=== PATIENT | female | born 1950 | race Caucasian/White ===

== ENCOUNTER 2020-03-12 08:50 | Emergency (ER) | payer MEDICARE ==
[2020-03-12] MEDS ORDERED: cloNIDine 0.1 MG TABLET PO STA (09:16)
--- NOTE | 2020-03-12 09:17 | ED Physician Documentation ---
History of Present Illness - Stated complaint Stated Complaint: SHAKEY - Chief complaint Chief Complaint: Cardiac - History obtained from History obtained from: Patient - Additonal information Additional information: 69-year-old woman with history of coronary artery disease, [address] from about 3 years ago. She woke this morning at 4 AM feeling odd, not quite right. Subsequently took her blood pressure several times and it was in the range of 200/100. She drove to the clinic, but the clinic was closed and subsequently she got quite shaky feeling like she was anxious. Activity improv es her symptoms. No chest pain or trouble breathing. No pedal edema. No urinary complaints. Review of Systems Constitutional: reports: Reviewed and negative Nose: denies: Rhinorrhea / runny nose Cardiac: denies: Chest pain / pressure, Palpitations, Pedal edema, Calf pain Respiratory: denies: Dyspnea, Cough PD PAST MEDICAL HISTORY - Allergies Allergies/Adverse Reactions: Allergies Allergy/AdvReac Type Severity Reaction Status Date / Time No Known Drug Allergies Allergy Verified 03/12/20 09:24 PD ED PE NORMAL - Vitals Vital signs reviewed: Yes - General General: Alert and oriented X 3, No acute distress - HEENT HEENT: PERRL, EOMI - Neck Neck: Supple, no meningeal sign, No bony TTP - Cardiac Cardiac: RRR, No murmur - Respiratory Respiratory: No respiratory distress, Clear bilaterally - Abdomen Abdomen: Normal bowel sounds, Soft, Non tender - Back Back: No CVA TTP, No spinal TTP - Derm Derm: Normal color, Warm and dry - Extremities Extremities: No edema, No calf tenderness / cord - Neuro Neuro: Alert and oriented X 3, bilingual legal assistant 2-12 intact, No motor deficit, No sensory deficit, Normal speech Results - Vitals Vitals: Vital Signs - 24 hr 03/12/20 03/12/20 09:01 09:33 Temperature 36.6 C Heart Rate 75 71 Respiratory 18 14 Rate Blood Pressure 209/95 H 171/73 H O2 Saturation 99 100 Oxygen O2 Source Room air - EKG (time done) 0908 Rate: Rate (enter#) Rhythm: NSR [place]: Normal Intervals: Normal [place] QRS: Normal Ischemia: Non specific changes. No: ST elevation c/w ischemia, ST depression Computer interpretation: Agree with computer - Labs Labs: Laboratory Tests 03/12/20 03/12/20 03/12/20 09:10 09:10 09:10 WBC 7.4 RBC 4.85 Hgb 15.6 Hct 44.8 MCV 92.4 MCH 32.2 H MCHC 34.8 RDW 12.4 Plt Count 320 MPV 10.3 Neut # (Auto) 5.3 Lymph # (Auto) 1.6 [place] # (Auto) 0.4 Eos # (Auto) 0.0 Baso # (Auto) 0.0 Absolute Nucleated RBC 0.00 Nucleated RBC % 0.0 Sodium 136 Potassium 3.6 Chloride 98 L Carbon Dioxide 24 Anion Gap 14.0 H BUN 26 H Creatinine 1.0 Estimated GFR (MDRD) 55 L Glucose 154 H Calcium 10.2 Total Bilirubin 0.8 AST 23 ALT 24 Alkaline Phosphatase 56 Total Protein 8.9 H Albumin 5.0 Globulin 3.9 Albumin/Globulin Ratio 1.3 Lipase 42 TSH 3.81 PD MEDICAL DECISION MAKING - ED course ED course: 89-year-old woman elevated blood pressure and anxiety, no evidence of endorgan damage. Feeling much better after 0.2 mg of clonidine p.o. Departure - Departure Disposition: 01 Home, Self Care Clinical Impression: Anxiety Hypertension Qualifiers: Hypertension type: essential hypertension Qualified Code(s): I10 - Essential (primary) hypertension Condition: Good Record reviewed to determine appropriate education?: Yes Instructions: ED HTN Established Comments: Continue current medications, do not take your blood pressure again today, take it tomorrow when you are feeling well. Follow-up with your doctor within the week. Return as needed.
[2020-03-12 09:27] LABS: BASOPHILS % (AUTO) 0.5 %; EOSINOPHILS % (AUTO) 0.5 %; HGB - HEMOGLOBIN 15.6 g/dL (12.0-16.0); LYMPHOCYTES # (AUTO) 1.6 10^3/uL (1.5-3.5); LYMPHOCYTES % (AUTO) 21.9 %; MEAN CORPUSCULAR HEMOGLOBIN 32.2 pg (27.0-31.0); MEAN CORPUSCULAR HGB CONC 34.8 g/dL (32.0-36.0); MEAN CORPUSCULAR VOLUME 92.4 fL (81.0-99.0); MEAN PLATELET VOLUME 10.3 fL (7.9-10.8); MONOCYTES # (AUTO) 0.4 10^3/uL (0.0-1.0); MONOCYTES % (AUTO) 5.8 %; NEUTROPHILS # (AUTO) 5.3 10^3/uL (1.5-6.6); PLT - PLATELET COUNT 320 10^3/uL (130-450); RED BLOOD COUNT 4.85 10^6/uL (4.20-5.40); RED CELL DISTRIBUTION WIDTH 12.4 % (12.0-15.0); WHITE BLOOD COUNT 7.4 x10^3/uL (4.8-10.8)
[2020-03-12 09:38] LABS: ALBUMIN/GLOBULIN RATIO 1.3 (1.0-2.2); BILIRUBIN,TOTAL 0.8 mg/dL (0.2-1.0); CALCIUM 10.2 mg/dL (8.5-10.3); TOTAL PROTEIN 8.9 g/dL (6.7-8.2)
[2020-03-12 10:20] VITALS: BP 107/96
== END 2020-03-12 10:30 | disposition home or self-care (01) ==
LOC: ED 08:50
DX: F41.9 Anxiety disorder, unspecified (principal); I25.10 Atherosclerotic heart disease of native coronary artery without angina pectoris; I10 Essential (primary) hypertension; Z95.5 Presence of coronary angioplasty implant and graft
CPT/HCPCS: 36415; 80053; 83690; 84443; 85025; 93005; 99284; A9270

== ENCOUNTER 2020-03-12 13:39 | Outpatient (CLI) | payer MEDICARE | END 2020-03-12 13:40 | disposition critical access hospital (66) | LOC: EMS 13:39 | PROVIDERS: ATTEND Surgery | DX: R25.9 Unspecified abnormal involuntary movements (principal); R11.0 Nausea; R20.2 Paresthesia of skin; R03.0 Elevated blood-pressure reading, without diagnosis of hypertension | CPT/HCPCS: A0425; A0429 ==

== ENCOUNTER 2021-08-18 04:57 | Outpatient (CLI) | payer MEDICARE | END 2021-08-18 04:58 | disposition EMS.NT | LOC: EMS 04:57 | DX: R11.0 Nausea (principal); F41.9 Anxiety disorder, unspecified ==

== ENCOUNTER 2021-12-18 08:00 | Outpatient (CLI) | payer MEDICARE | END 2021-12-18 23:59 | disposition home or self-care (01) | LOC: LAB.S 08:00 | PROVIDERS: ATTEND Physician Assistant | DX: R05.8 Other specified cough (principal); Z20.822 Contact with and (suspected) exposure to COVID-19 ==

== ENCOUNTER 2022-11-17 14:36 | Emergency (ER) | payer MEDICARE ==
--- NOTE | 2022-11-17 14:57 | ED Physician Documentation ---
PD HPI CHEST PAIN - Stated complaint Stated Complaint: HIGH HEART RATE/ABNORMAL BLOOD TEST - Chief complaint Chief Complaint: Cardiac - History obtained from History obtained from: Patient - Additional information Additional information: She had run out of her metoprolol about a week ago. She has a history of coronary disease with 3 stents and is on Plavix and metoprolol. After running out of her metoprolol she felt chest pounding and exertional dyspnea not associate with cough or chest pain. No recent pedal edema or calf pain. She went to the [place] clinic this morning where they did a work-up which she shows me on my chart. This included a chest x-ray which was normal. An EKG reportedly normal. High-sensitivity troponin that was negative, and a GFR of 50. Her H&H was normal. She had a D-dimer done which was 0.82 with a high end of normal being 0.49 so was referred here for PE rule out. PD PAST MEDICAL HISTORY - Past Medical History Cardiovascular: Hypertension, High cholesterol, Coronary artery disease, Atrial fibrillation Respiratory: None Neuro: Other Endocrine/Autoimmune: None GI: GERD CUSTOMER RETENTION SPECIALIST: None : None HEENT: None Psych: Anxiety Musculoskeletal: Osteoarthritis Derm: None - Past Surgical History Past Surgical History: Yes /CUSTOMER RETENTION SPECIALIST: section Cardiovascular: Coronary stent, Cardiac catheterization - Present Medications Home Medications: Ambulatory Orders Medication Instructions Recorded Confirmed Alirocumab [Praluent Pen] 75 mg SQ Q14D 11/17/22 11/17/22 Amlodipine Besylate [Norvasc] 10 mg PO DAILY 11/17/22 11/17/22 Aspirin EC [Ecotrin] 81 mg PO DAILY 11/17/22 11/17/22 Clopidogrel [Plavix] 75 mg PO DAILY 11/17/22 11/17/22 Estradiol [Vagifem] 10 mcg VG ONCE 11/17/22 11/17/22 Ferrous Sulfate [Feosol] 325 mg PO DAILY 11/17/22 11/17/22 Gabapentin [Neurontin] 300 mg ORAL HS 11/17/22 11/17/22 Losartan Potassium [Cozaar] 100 mg PO DAILY 11/17/22 11/17/22 Metoprolol Succinate [Toprol Xl] 25 mg PO DAILY 11/17/22 11/17/22 Pantoprazole [Protonix] 40 mg PO DAILY 11/17/22 11/17/22 Ropinirole HCl [Ropinirole ER] 4 mg PO DAILY 11/17/22 11/17/22 hydrOXYzine pamoate [Hydroxyzine 25 mg PO DAILY PRN 11/17/22 11/17/22 Pamoate] hydroCHLOROthiazide [Hydrodiuril] 25 mg PO DAILY 11/17/22 11/17/22 - Allergies Allergies/Adverse Reactions: Allergies Allergy/AdvReac Type Severity Reaction Status Date / Time No Known Drug Allergies Allergy Verified 11/17/22 14:45 - Social History Does the pt smoke?: No Smoking Status: Former smoker Does the pt drink ETOH?: No Does the pt have substance abuse?: No - Immunizations Immunizations are current?: Yes PD ED PE NORMAL - Vitals Vital signs reviewed: Yes - General General: Alert and oriented X 3, No acute distress - Neck Neck: Supple, no meningeal sign, No bony TTP - Cardiac Cardiac: RRR, No murmur - Respiratory Respiratory: No respiratory distress, Clear bilaterally - Abdomen Abdomen: Non tender - Extremities Extremities: No edema, No calf tenderness / cord - Neuro Neuro: Alert and oriented X 3, Normal speech Results - Vitals Vitals: Vital Signs - 24 hr 11/17/22 11/17/22 14:40 15:28 Temperature 36.1 C L Heart Rate 104 H 72 Respiratory 16 10 L Rate Blood Pressure 178/69 H 132/52 H O2 Saturation 100 99 Oxygen O2 Source Room air PD Medical Decision Making - ED course ED course: 72-year-old woman referred in with an elevated D-dimer from the outpatient setting with an otherwise negative and fairly complete work-up. CT angiography of the chest and Doppler ultrasound of the legs was negative for DVT/PE here. We did discuss with her the incidental finding of the adrenal abnormality and need for follow-up MRI and she voiced understanding and was given a copy of the CT read. Departure - Departure Disposition: 01 Home, Self Care Clinical Impression: Tachycardia, D-dimer, elevated Dyspnea Qualifiers: Dyspnea type: dyspnea on exertion Qualified Code(s): R06.09 - Other forms of dyspnea Condition: Good Record reviewed to determine appropriate education?: Yes Instructions: ED Dyspnea Shortness of Breath Comments: CAT scan of your chest and ultrasound of legs was negative for clot. Recommend you talk about your exertional dyspnea with your finger lift operator on Saturday. As discussed there was an abnormal finding on your CAT scan, probably benign but needing follow-up MRI, please discuss with your physician at the next available appointment. CT chest: Focus of soft tissue density with air along the posterior medial aspect of the stomach and along the superior medial margin of the adrenal gland. 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 No priors are available for comparison. Further ev aluation with MRI with adrenal protocol to nonemergent basis is recommended.
[2022-11-17] MEDS ORDERED: iohexoL-300 100 ML VIAL ONE (15:03)
[2022-11-17] MEDS ORDERED: iohexoL-300 100 ML VIAL IVP ONE (15:22)
[2022-11-17 15:28] VITALS: BP 132/52
--- NOTE | 2022-11-17 15:35 | CT Report ---
PROCEDURE: ANGIO CHEST W/WO INDICATIONS: Pe protocol for dyspnea, GFR this AM = 50 CONTRAST: 80ml omni 300 TECHNIQUE: After the administration of intravenous contrast, 2 mm axial images were acquired from the pulmonary apices to the posterior costophrenic angles during the arterial phase. In addition, 1 mm lung kernel and 5 mm soft tissue kernel reconstructions were performed. 3-dimensional coronal oblique maximum int ensity projection (MIP) reformats, 8 mm axial MIP, and 5 mm coronal and sagittal MPR reformats were t hen performed through the thorax. For radiation dose reduction, the following was used: automated exp osure control, adjustment of mA and/or kV according to patient size. COMPARISON: Chest x-ray 09/17/2022 FINDINGS: Image quality: Excellent. Large vessels: No filling defects within the opacified pulmonary arteries, accounting for motion and contrast timing. No evidence of acute aortic syndrome or aortic aneurysm. Lungs and pleura: No consolidation. No pleural effusions. No pneumothorax. No suspicious pulmonary n odules which require follow up. Mediastinum: Heart size is normal. No pericardial effusions. No mediastinal adenopathy by size criter ia. Chest wall and lower neck: Thyroid is unremarkable. No axillary or supraclavicular adenopathy by size . Bones: No aggressive osseous abnormality. Upper Abdomen: There is a soft tissue focus with fat adjacent to the posterior medial stomach, along the superior margin of the left adrenal gland, seeen on series 5 image 133. IMPRESSION: No pulmonary embolism. Lungs are clear. Focus of soft tissue density with air along the posterior medial aspect of the stomach and along the superior medial margin of the adrenal gland. Given fat component, this is suspected to represent an a drenal angiomyolipoma. No priors are available for comparison. Further evaluation with MRI with adren al protocol to nonemergent basis is recommended. Reviewed by: Jesi Marie MD on 11/17/2022 3:33 PM PDT Approved by: Jesi Marie MD on 11/17/2022 3:33 PM PDT Station ID: [id number]
--- NOTE | 2022-11-17 16:50 | Ultrasound Report ---
PROCEDURE: Duplex Ext Veins Bilateral INDICATIONS: Richardson Avelar MD TECHNIQUE: Real-time imaging, as well as color and pulse Doppler interrogation, were performed of the deep veins of both legs from the inguinal ligament to the popliteal fossa. COMPARISON: No FINDINGS: The deep veins are normally compressible, and free of intraluminal thrombus. Color and pu lse Doppler demonstrate normal phasic intravascular flow. There is normal augmentation response to d istal compression maneuver. Small superficial focus of echogenicity. IMPRESSION: No deep venous thrombosis. Small focus of echogenicity within the distal thigh possibly related to small hematoma. Recommend cli nical correlation. Reviewed by: Jesi Marie MD on 11/17/2022 4:49 PM PDT Approved by: Jesi Marie MD on 11/17/2022 4:49 PM PDT Station ID: [id number]
== END 2022-11-17 16:51 | disposition home or self-care (01) ==
LOC: ED 14:36
DX: R06.09 Other forms of dyspnea (principal); R79.89 Other specified abnormal findings of blood chemistry; R00.0 Tachycardia, unspecified; I48.91 Unspecified atrial fibrillation; Z79.01 Long term (current) use of anticoagulants; Z95.5 Presence of coronary angioplasty implant and graft; Z87.891 Personal history of nicotine dependence
CPT/HCPCS: 71275; 93970; 99283; 99284; Q9967

== ENCOUNTER 2023-10-04 09:49 | Outpatient (CLI) | payer MEDICARE | END 2023-10-04 23:59 | disposition short-term general hospital (02) | LOC: EMS 09:49 | DX: R42 Dizziness and giddiness (principal); R53.1 Weakness; R06.02 Shortness of breath; R07.9 Chest pain, unspecified | CPT/HCPCS: A0425; A0429 ==